=== PATIENT | male | born 1960 | race Caucasian/White ===

== ENCOUNTER 2017-08-02 09:43 | Emergency (ER) | payer OTHER, SELFPAY ==
[2017-08-02 10:50] LABS: #Basophils 0.1 thou/uL (0.0-0.2); #Eosinphils 0.2 thou/uL (0.0-0.7); #Lymphocytes 2.8 thou/uL (1.20-3.40); #Monocytes 0.5 thou/uL (0.11-0.59); #Neutrophils 6.2 thou/uL (1.40-6.50); %Basophils 1.1 % (0.0-1.0); %Eosinophils 1.6 % (0.0-10.0); %Lymphocytes 28.9 % (21.0-51.0); %Monocytes 4.8 % (0.0-10.0); Hematocrit 47.8 % (42.0-52.0); Mean Platelet Volume 8.1 fL (7.4-10.4); Red Blood Cell (RBC) Count 5.15 mill/uL (4.70-6.10); White Blood Cell (WBC) Count 9.8 thou/uL (4.8-10.8)
--- NOTE | 2017-08-02 10:54 | RAD ---
RIGHT SHOULDER 3 VIEWS: DATE: 08/02/17. COMPARISON: None. HISTORY: Pain, difficulty moving arm. FINDINGS: There is no widening of the acromioclavicular or coracoclavicular interspace. No displaced fracture or dislocation seen. IMPRESSION: No acute osseous abnormality. POS: [facility]
--- NOTE | 2017-08-02 11:00 | CT ---
CT BRAIN WITHOUT CONTRAST: Date: 08/02/17 HISTORY: 56-year-old male with decreased range of motion to the right shoulder and right upper arm. Right uppe r extremity pain and weakness. FINDINGS: No evidence of acute infarct, hemorrhage, midline shift, or abnormal extra-axial fluid collections ar e seen. The ventricular size is normal and the basilar cisterns are patent. The bony calvarium is int act. The visualized paranasal sinuses and mastoid air cells are well aerated. IMPRESSION: NO CT evidence of acute intracranial process. POS: [facility]
[2017-08-02 11:02] LABS: Anion Gap 16 mmol/L (10-20); BUN (Urea Nitrogen) 17 mg/dL (8.4-25.7); CK (CPK) 293 U/L (30-200); Calc. Creatinine Clearance 0 mL/min (70-130); Calcium 9.8 mg/dL (7.8-10.44); Carbon Dioxide 23 mmol/L (22-29); Chloride 103 mmol/L (98-107); Estimated GFR-MDRD 65
[2017-08-02 11:06] LABS: Troponin I Less than 0.010 ng/mL (< 0.028)
--- NOTE | 2017-08-02 11:14 | CT ---
CT OF CERVICAL SPINE WITHOUT CONTRAST: HISTORY: Neck pain with decreased range of motion and right upper extremity pain. FINDINGS: No acute fracture or subluxation is evident. There is advanced degenerative disk disease at C6-7 with some vacuum disk phenomenon present likely r elated to some disk instability. Mild degenerative disk disease at C5-C6. There is incomplete fusio n of the spinous process at C7 which is a normal variant. Craniocervical junction appears within nor mal limits. No definite osseous central canal narrowing is grossly evident. There is uncovertebral hypertrophy a nd facet joint degenerative disk disease inducing at least mild osseous neural foraminal narrowing bi laterally at C6-7. Lung apices are clear. There is prominent heterogeneity of the thyroid gland. IMPRESSION: 1. No acute fracture or subluxation is evident. 2. Spondylosis of the cervical spine most pronounced at C5-6 and C6-7. In light of the patient's cl inical history, an outpatient MRI examination of the cervical spine may be helpful for additional patricia luation for neural foraminal narrowing. 3. Prominent heterogeneity of the thyroid gland. This was evaluated on the thyroid ultrasound in 2015. Followup examination is recommended to evaluate stability of the lesions identified on prior exam. POS: [facility]
== END 2017-08-02 11:17 | disposition home or self-care (01) ==
LOC: SCSER 09:43
DX: M75.01 Adhesive capsulitis of right shoulder (principal); F17.210 Nicotine dependence, cigarettes, uncomplicated
CPT/HCPCS: 70450; 72125; 80048; 82553; 84484; 85025; 93005

== ENCOUNTER 2017-08-09 08:00 | Outpatient (CLI) | payer OTHER | END 2017-08-09 08:01 | disposition home or self-care (01) | LOC: BICMRI 08:00 | PROVIDERS: ATTEND Orthopaedic Surgery | DX: M50.121 Cervical disc disorder at C4-C5 level with radiculopathy (principal); M47.22 Other spondylosis with radiculopathy, cervical region; M99.51 Intervertebral disc stenosis of neural canal of cervical region | CPT/HCPCS: 72141 ==

== ENCOUNTER 2017-08-13 15:39 | Outpatient (CLI) | payer OTHER ==
--- NOTE | 2017-08-13 17:32 | RAD ---
CERVICAL SPINE 6 VIEWS: Date: 08/13/17 CLINICAL HISTORY: Cervical radiculopathy, pain. FINDINGS: Lateral masses of C1 are appropriately aligned. Imaged dense is intact. No evidence of abnormal trans lational motion. There is degenerative change centered at the low cervical spine with disc space narr owing of C6-7 notably at the posterior aspect, and adjacent end plate sclerosis/osteophytosis. Mild m arginal osteophyte formation is also present at C5-6 level. There is a slight degree of focal kyphosi s centered at the C5-6 level. 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 IMPRESSION: 1. No acute abnormality if the cervical spine. No evidence of translational motion by flexion/extens ion positioning. 2. There is degenerative change. POS: [facility]
== END 2017-08-13 15:40 | disposition home or self-care (01) ==
LOC: SCSRAD 15:39
PROVIDERS: ATTEND Neurological Surgery
DX: M47.812 Spondylosis without myelopathy or radiculopathy, cervical region (principal)
CPT/HCPCS: 72050

== ENCOUNTER 2017-08-13 16:58 | Inpatient (IN) | payer OTHER ==
--- NOTE | 2017-08-13 18:21 | RAD ---
RADIOGRAPH CHEST 2 VIEWS: 08/13/17 HISTORY: 56-year-old female for presurgical clearance. FINDINGS: There is no air space density, pulmonary edema, pleural effusion, pneumothorax, or cardiomegaly. IMPRESSION: No acute cardiopulmonary findings. jarrett [] POS: [facility]
[2017-08-13] MEDS ORDERED: Morphine 4 MG/ML VIAL SLOW IVP PRN ×2 (18:32)
[2017-08-13] MEDS ORDERED: Acetaminophen/Codeine 30-300mg Tablet PO PRN ×2 (18:32)
[2017-08-13 18:40] LABS: #Basophils 0.1 thou/uL (0.0-0.2); #Eosinphils 0.3 thou/uL (0.0-0.7); #Lymphocytes 3.4 thou/uL (1.20-3.40); #Monocytes 0.6 thou/uL (0.11-0.59); #Neutrophils 6.6 thou/uL (1.40-6.50); %Basophils 1.2 % (0.0-1.0); %Eosinophils 2.7 % (0.0-10.0); %Monocytes 5.5 % (0.0-10.0); Hematocrit 46.7 % (42.0-52.0); Mean Platelet Volume 7.4 fL (7.4-10.4); Red Blood Cell (RBC) Count 4.87 mill/uL (4.70-6.10); White Blood Cell (WBC) Count 11.1 thou/uL (4.8-10.8)
--- NOTE | 2017-08-13 19:01 | HP ---
The patient is a 56-year-old male. 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 He comes in for evaluation of 10 days of right arm weakness, especially in the de ltoids. It was Wednesday about 10 days ago when he woke up with neck pain and searing pain from the nec k to the right shoulder and into the arm, but not the forearm. A few days later, the pain was lastin g but weakness became profound. He sent for shoulder evaluation and eventually underwent MRI imaging and is referred for severe radiculopathy. In the intervening 10 days, the pain is going away but th e weakness is profound. There is no antigravity strength in the biceps and the right deltoid is weak . Triceps and forearm seem to be working fine. There are no left arm symptoms and no leg symptoms, no bowel or bladder issues. MEDICATIONS: 1. Cortisporin otic 1% - 0.35% 1000 units mL suspension 2-5 drops to each affected ear twice a day. 2. Methylprednisolone 4 mg therapy pack orally as directed. 3. Gabapentin 100 mg capsule, 1 capsule orally 3 times a day. 4. Tramadol 50 mg tablet, 1 tablet as needed orally every 6 hours. 5. Medication list reviewed and reconciled with the patient. PAST MEDICAL HISTORY: Thyroid nodule and benign cyst. ALLERGIES: No known drug allergies. PAST SURGICAL HISTORY: No surgical history documented. PRIOR HOSPITALIZATION: No hospitalizations documented. FAMILY HISTORY: Father is . Mother is . SOCIAL HISTORY: The patient smokes cigarettes, 15 cigarettes a day. He has 1 alcoholic drink per ni ght. REVIEW OF SYSTEMS: The patient reports weakness in the right arm deltoid muscle. Ten-point review o f systems is complete is otherwise negative unless stated in the above HPI. PHYSICAL EXAMINATION: HEENT: Normocephalic, atraumatic. Hearing intact. Moist mucous membranes. Trachea is midline. Ey es: Pupils equal and reactive to light. Extraocular muscles are intact. Sclerae is white, nonicter ic. CARDIOVASCULAR: The patient has regular rate and rhythm. Normal S1, S2 heart sounds. No distal cya nosis or clubbing noted. RESPIRATORY: The patient has bilateral symmetric chest rise, appears to be no shortness of breath. NEUROLOGIC: Cranial nerves: There is no anisocoria. Cerebellar exam: There is no truncal ataxia. Gait and station are normal. Motor exam: Deltoid strength is +3, biceps is +2. SENSORY: Mild C5 loss on the right C6-7, 8, and T1 are all clearly normal. REFLEX: Absent biceps reflex on the right. No clonus. MRI from [facility] shows fresh HMP at the right C4-C5 foramen, severe neural entrapment. C5-6 foraminal disease, moderate. C6-C7, there is mild to moderate. ASSESSMENT: Cervical disk disorder at C4-5 level with radiculopathy. Treatment for severe C5 radicu lopathy is preservation of strength. PLAN: Dr. Coreas offered alternative therapies such as traction injections in 2 weeks' time to se e any improvement. The patient favors immediate intervention and we agree. Informed consent was giv en. We discussed the risks, benefits, alternatives, and expected results from surgery. The risks di scussed included, but were not limited to bleeding, infection, CSF leak, nerve damage, weakness, swal lowing trouble, feeding tube placement, tracheal injury, esophageal injury, vocal cord injury, spinal cord injury, incontinence, paralysis, ventilator dependence, wheelchair dependence, stroke, loss of vision, carotid artery injury, jugular vein injury, hardware misplacement, cardiopulmonary complicati ons of anesthesia or . Long-term complications discussed included, but were not limited to hard hayes failure and degeneration of surrounding disk. He understands the risk and is willing to proceed with the surgery. The patient is to quit smoking. He obtained flexion, extension x-rays from [facility]. The patient is being directly admitted to [facility] and wi ll have Surgery on 08/14/2017. If any further questions, please feel free to contact Neurosurgery.
[2017-08-13 19:06] LABS: Chloride 100 mmol/L (98-107)
[2017-08-13 19:07] LABS: Calcium 9.8 mg/dL (7.8-10.44)
[2017-08-13 19:08] LABS: Globulin 3.1 g/dL (2.4-3.5); Protein, Total 7.3 g/dL (6.0-8.3)
[2017-08-13 19:09] LABS: Anion Gap 12 mmol/L (10-20); Bilirubin, Total 1.1 mg/dL (0.2-1.2); Carbon Dioxide 28 mmol/L (22-29)
[2017-08-13 19:10] LABS: Alkaline Phosphatase 54 U/L (40-150)
[2017-08-13 19:11] LABS: Calc. Creatinine Clearance 0 mL/min (70-130); Estimated GFR-MDRD 69
[2017-08-13 19:12] LABS: BUN (Urea Nitrogen) 18 mg/dL (8.4-25.7)
[2017-08-13 19:13] LABS: ALT (SGPT) 28 U/L (8-55); AST (SGOT) 17 U/L (5-34)
[2017-08-14 00:01] VITALS: BMI 25.0
[2017-08-14] MEDS ORDERED: CEFAZOLIN 2 GM in Sodium Chloride 0.9% 100 ML IVPB ONE (07:00)
[2017-08-14] MEDS ORDERED: CEFAZOLIN/Water 2 GM/20 ML SYRINGE SLOW IVP SCH (07:00)
[2017-08-14] MEDS ORDERED: Sodium Chloride 0.9% 10 ML ONE (07:19)
[2017-08-14] MEDS ORDERED: Thrombin 5000 UNITS/5 ML VIAL ONE (07:19)
--- NOTE | 2017-08-14 07:33 | PRG ---
DATE OF SERVICE: 08/14/2017 NEUROSURGERY PROGRESS NOTE SUBJECTIVE: I personally interviewed and examined the patient and agree with documentation of Rod Noland PA-C, dated 08/13/2017. 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 We found that he lacked antigravity strength in his biceps and he was significantly weak in the deltoid. The wrist extensors, finger extensors, a nd interossei were all intact. This started with a painful episode about 10 days ago. MR imaging of the cervical spine showed a disk herniation completely trapping the C5 nerve root on the right side. This looks like a fresh disk herniation. Due to profound weakness, we wanted to expedite the surgery. We brought him to the hospital yesterda y in anticipation of removing the pressure on the nerve root today. I saw Dr. Grewal this morning. He continues to have the same profound neurological deficit that I fo und him within the office. INFORMED CONSENT: I have already discussed the indications, risks, benefits, alternatives, and expec skye outcomes from anterior cervical diskectomy and fusion. The risks discussed included, but were no t limited to bleeding, infection, CSF leak, nerve damage, spinal cord injury, injury to the trachea, esophagus, vocal cords, carotid artery, jugular vein or cardiopulmonary complications of anesthesia i ncluding . He understands all these risks and wants to proceed. We will take Dr. Grewal to the operating room for C4-C5 ACDF. Because of the searing pain at the beginning of this episode and the profound weakness, it could be a possibility this is [place]-Munoz type phenomenon, but I am uncomfortable leaving a large disk he rniation and waiting out the profound weakness rather than giving him an opportunity to improve witho ut pressure on the C5 nerve.
[2017-08-14] MEDS ORDERED: CEFAZOLIN/Water 2 GM/20 ML SYRINGE ONE (07:48)
[2017-08-14] MEDS ORDERED: Fentanyl 100 MCG/2 ML VIAL ONE ×3 (07:56→11:05)
[2017-08-14] MEDS ORDERED: Promethazine HCl 25 MG/ML VIAL IM PRN (10:48)
[2017-08-14] MEDS ORDERED: Promethazine HCl 25 MG/ML VIAL SLOW IVP PRN (10:48)
[2017-08-14] MEDS ORDERED: Ondansetron HCl/PF 4 MG/2 ML Vial IVP PRN ×2 (10:48→12:14)
[2017-08-14] MEDS ORDERED: Morphine Sulfate 2 MG/ML SYRINGE SLOW IVP PRN (10:48)
[2017-08-14] MEDS ORDERED: Morphine 4 MG/ML Carpuject SLOW IVP PRN (12:14)
[2017-08-14] MEDS ORDERED: Cyclobenzaprine 10 MG TAB PO PRN (12:14)
[2017-08-14] MEDS ORDERED: Acetaminophen/Codeine 30-300mg Tablet PO PRN ×2 (12:14)
[2017-08-14] MEDS ORDERED: Morphine 4 MG/ML VIAL SLOW IVP PRN ×2 (12:30)
--- NOTE | 2017-08-14 12:49 | OP ---
DATE OF PROCEDURE: 08/14/2017 SURGEON: Rebekah Coreas M.D. [employer] CHOPPER: Rod Noland PA-C. INDICATIONS: Prevent further neurological deterioration. PREOPERATIVE DIAGNOSES: Right C4-C5 intervertebral disk herniation with superior C5 radiculopathy. POSTOPERATIVE DIAGNOSIS: Right C4-C5 intervertebral disk herniation with superior C5 radiculopathy. OPERATIVE PROCEDURES: Anterior cervical diskectomy, intravertebral arthrodesis, placement of interve rtebral biomechanical device, anterior cervical plating C4-C5. Local morselized autograft, morselize d allograft, and operating microscope. PREOPERATIVE MEDICATIONS: Ancef 2 grams IV. DRAIN NUMBER: Zero. DRAIN TYPE: None. DESCRIPTION OF PROCEDURE: The patient was brought to the operating room. General endotracheal anest hesia was induced. The patient was positioned supine on the operating table. A lateral fluoro radio graph was used to plan our incision. The right side of the neck was sterilely prepped and draped. W e opened with a 10 blade knife and controlled bleeding with bipolar cautery. We dissected sharply to the platysma and cut this muscle in line with our incision. We continued our dissection medial to [facility] sternocleidomastoid lateral to the trachea and esophagus, and we arrived to the prevertebral space . We placed a marker at C4-C5 and took a lateral fluoro radiograph to confirm the levels upon which we were operating. We then elevated the longus colli muscles off the anterior surface of C4 and C5. We placed self-retaining retractors beneath the muscles. Distraction pins were placed at C4 and C5, and we distracted across the intervening interspace. We incised the interspace with a 15 blade knif e and removed disk contents using curettes and rongeurs. The operative microscope was brought into t field. Under microscopic navigation and using microsurgical techniques, we removed our remainder of the inte rvertebral disk and the posterior longitudinal ligament across the entire interspace. The left tete en was well-decompressed, and the right foramen and nerve root seemed to be pushed away from us. We teased multiple loose fragments of freshly herniated disk material out of the foramen, removed some o f the uncovertebral joint. We controlled bleeding with gentle bipolar cautery. At completion of our decompression, the nerve root was well decompressed. Parts of it were erythematous from the prior c ompression, but there is no longer any stretch of the nerve root at all. We prepared the endplates f or grafting with curets and measured the height of the interspace to 7 mm. A 7 mm PEEK intravertebra l graft was brought into the field. Osteophytes that had been removed during our diskectomy were latrice aned of all soft tissue attachments. This bone was morcellized and demineralized bone matrix to form our fusion substrate. The substrate was placed in the center of the PEEK graft and the graft was ad vanced into the interspace under radiographic guidance to the appropriate depth. We removed the oper ating microscope and distraction pins. A 16 mm anterior cervical plate was brought into the field. We drilled tugboat pilot holes through the plate into the vertebral bodies at C4 and C5 and affixed the plate using 14 mm screws. We used fixed angle screws at C5 and variable angle screws at C4. We engaged t he locking mechanism over each of the 4 screws. AP and lateral fluoro radiographs confirmed adequate position of instrumentation. We irrigated copiously with bacitracin irrigation. We closed the woun d in anatomic layers and applied a sterile dressing. This was a clean case and no contamination.
[2017-08-14] MEDS ORDERED: PHENYLEPHRINE-NS 100 MCG/ML 10 ML SYRINGE ONE (14:00)
[2017-08-14] MEDS ORDERED: Ondansetron HCl/PF 4 MG/2 ML Vial ONE (14:00)
[2017-08-14] MEDS ORDERED: Propofol 200 MG/20 ML VIAL ONE (14:00)
[2017-08-14] MEDS ORDERED: Lidocaine 1% PF 5 ML VIAL ONE (14:00)
[2017-08-14] MEDS ORDERED: Glycopyrrolate 0.2 MG/ML 5 ML SYRINGE ONE (14:00)
[2017-08-14 20:07] VITALS: BP 122/80; TEMP 98.3
[2017-08-15] MEDS ORDERED: FLU VACC QS2017-18 36 mo. & older 0.5 ML SYRINGE IM ONE (09:00)
== END 2017-08-14 16:00 | disposition home or self-care (01) | DRG 473 ==
LOC: ERS 16:58 → SURG B 19:44
PROVIDERS: ADMIT Neurological Surgery; ATTEND Neurological Surgery
PROC: 0RG10A0 Fusion of Cervical Vertebral Joint with Interbody Fusion Device, Anterior Approach, Anterior Column, Open Approach (ICD-10-PCS; principal; 2017-08-14)
PROC: 0RT30ZZ Resection of Cervical Vertebral Disc, Open Approach (ICD-10-PCS; 2017-08-14)
PROC: 01N10ZZ Release Cervical Nerve, Open Approach (ICD-10-PCS; 2017-08-14)
DX: M50.121 Cervical disc disorder at C4-C5 level with radiculopathy (principal); F17.210 Nicotine dependence, cigarettes, uncomplicated
CPT/HCPCS: 36415; 71020; 72050; 76000; 80053; 85025; 93005; A4216; C1713; J2001; J2270; J2405; J2704; J3010; J3490

== ENCOUNTER 2017-10-14 08:07 | Outpatient (CLI) | payer OTHER ==
--- NOTE | 2017-10-14 09:00 | RAD ---
CERVICAL SPINE RADIOGRAPH SERIES 3 VIEWS: Date: 10/14/17 INDICATION: Cervical radiculopathy. FINDINGS: The lateral mass is similar and appropriately aligned. Dens is partially obscured. There is evidence of anterior fusion centered at the C4-5 level with an intervening disc space device. No hardware comp lication seen. There is moderate degenerative change at the straightened cervical spine. IMPRESSION: Postoperative cervical spine with degenerative change. There is no evidence of hardware complication. POS: [facility]
== END 2017-10-14 08:08 | disposition home or self-care (01) ==
LOC: TBSIIMAG 08:07
PROVIDERS: ATTEND Neurological Surgery
DX: M47.22 Other spondylosis with radiculopathy, cervical region (principal); Z98.1 Arthrodesis status
CPT/HCPCS: 72040